=== PATIENT | female | born 1950 | race Caucasian/White ===

== ENCOUNTER 2017-03-12 10:35 | Outpatient (CLI) | payer MEDICARE, OTHER ==
[~2017-03-12] VITALS: Ht 154.9 cm; Wt 65.8 kg
[2017-03-12] MEDS ORDERED: FENT1PAT10 TD (10:50)
[2017-03-12] MEDS ORDERED: VENL150C PO (10:50)
[2017-03-12] MEDS ORDERED: ALPR0.254 PO (10:50)
[2017-03-12] MEDS ORDERED: PANT40TA3 PO (10:50)
[2017-03-12] MEDS ORDERED: CLON1PAT33 TD (10:50)
[2017-03-12] MEDS ORDERED: HYDR-3820 PO (10:50)
[2017-03-12] MEDS ORDERED: CETI10TA17 PO (10:50)
[2017-03-12] MEDS ORDERED: NEBI5TAB8 PO (10:50)
== END 2017-03-12 13:40 ==
LOC: PREOP 10:35
PROVIDERS: ATTEND Family Medicine
DX: Z01.818 Encounter for other preprocedural examination (principal); M20.12 Hallux valgus (acquired), left foot; M20.42 Other hammer toe(s) (acquired), left foot

== ENCOUNTER 2017-03-19 11:41 | Day surgery (SDC) | payer MEDICARE, OTHER ==
[~2017-03-19] VITALS: Ht 154.9 cm; Wt 65.8 kg
[~2017-03-19 11:41] MED LIST: ALPR0.254 PO; CETI10TA17 PO; CLON1PAT33 TD; FENT1PAT10 TD; HYDR-3820 PO; NEBI5TAB8 PO; PANT40TA3 PO; VENL150C PO
[2017-03-19] MEDS ORDERED: LIDOCAINE PF 2% 5 ML (XYLOCAINE) VIAL ONE (12:13)
[2017-03-19] MEDS ORDERED: ONDANSETRON 4 MG/2 ML (SDV) Z0FRAN ONE (12:13)
[2017-03-19] MEDS ORDERED: proPOfol 200 MG/20 ML (DIPRIVAN) VIAL IV ONE (12:13)
[2017-03-19] MEDS ORDERED: DEXAMETHASONE PF 10 MG/ML (DECADRON) VIAL ONE (12:13)
[2017-03-19] MEDS ORDERED: fentaNYL INJECTION 100 MCG/2 ML AMP ONE (12:14)
[2017-03-19] MEDS ORDERED: FAMOTIDINE 20MG/2ML IV (PEPCID) IV ONE (12:15)
[2017-03-19] MEDS ORDERED: ONDANSETRON 4 MG/2 ML (SDV) Z0FRAN IV ONE (12:15)
[2017-03-19] MEDS ORDERED: ceFAZolin 1 GM/NS 50 ML IVPB IV ONE ×2 (12:15)
[2017-03-19] MEDS ORDERED: MIDAZOLAM 2 MG/2 ML (VERSED) VIAL ONE (12:20)
[2017-03-19] MEDS: LACTATED RINGERS 1,000 ML IV PRN ×3 (12:27→16:15)
[2017-03-19] MEDS ORDERED: BUPIVACAINE 0.25% 30 ML (SENSORCAINE) VIAL ONE (12:41)
[2017-03-19 13:26] VITALS: BP 98/63
[2017-03-19] MEDS ORDERED: LACTATED RINGERS 2,000 ML IV ONE (15:50)
[2017-03-19] MEDS ORDERED: SEVOFLURANE (ULTANE) 15 ML INHAL SOLN ONE (16:30)
[2017-03-19] MEDS ORDERED: LACTATED RINGERS 1,000 ML IV ONE (16:31)
--- NOTE | 2017-03-19 16:40 | Progress Note-Pre Operative ---
Pre-Operative Progress Note H&P Reviewed The H&P was reviewed, patient examined and no changes noted. Date H&P Reviewed: Mar 19, 2017 Time H&P Reviewed: 12:40 Pre-Operative Diagnosis: Hallux Valgus, Hammertoes 2,3,4,5 left foot MITCHELL GIVENS DPM Mar 19, 2017 4:40 pm
--- NOTE | 2017-03-19 16:43 | Progress Note-Post Operative ---
Post-Operative Progess Note Surgeon (s)/Pocket Stitcher (s) Surgeon MITCHELL GIVENS DPM Pocket Stitcher: none Pre-Operative Diagnosis Hallux Valgus, Hammertoes 2,3,4,5 left foot Post-Operative Diagnosis Same plus hypertrophic 2nd metatarsal left foot Procedure & Operative Findings Date of Procedure 03/19/17 Procedure Performed/Findings Evaristo-Rahul bunionectomy Reduction of Hammertoes 2, 3, 4, 5 2nd Metatarsal Head resection All left foot Anesthesia Type General Estimated Blood Loss Estimated blood loss (mL): minimal Specimens/Packing Specimens Removed left 2nd metatarsal head Packing: none MITCHELL GIVENS DPM Mar 19, 2017 4:43 pm
[2017-03-19] MEDS ORDERED: morphine INJ 10 MG/ML 1ML (SYR OR VIAL) IVP PRN (16:45)
[2017-03-19] MEDS ORDERED: ONDANSETRON 4 MG/2 ML (SDV) Z0FRAN IVP PRN (16:45)
[2017-03-19] MEDS ORDERED: CEPH500C PO (16:48)
[2017-03-19] MEDS: LACTATED RINGERS 1,000 ML IV SCH ×2 (18:44→23:28)
[2017-03-19] MEDS: HYDROcodone/APAP 5 MG/325 MG (LORTAB) TAB PO PRN ×2 (19:02→23:00)
--- NOTE | 2017-03-19 19:12 | Diagnostic Imaging Report ---
INDICATION: Postoperative left foot COMPARISON STUDIES: None FINDINGS: Two views of the left foot demonstrate pins running from the distal phalanx of the second and third toes into the respective metatarsals. The pin in the second one goes between the soft tissues between the first and second metatarsal. Erosive or postoperative changes are seen in the second metatarsal head. There is a third pin going from the distal phalanx to the base of the proximal phalanx of the fourth toe. Postoperative changes are present in the great toe and these appear to be old. IMPRESSION: Interval pinning of the second, third and fourth digit. Previous postoperative changes seen in the great toe. Dictated by: Dictated on workstation # [id number]
[2017-03-20 00:53] VITALS: BP 104/61
[2017-03-20] MEDS: LACTATED RINGERS 1,000 ML IV SCH ×2 (00:55→07:30)
[2017-03-20] MEDS: oxyCODONE/APAP 5/325MG (PERCOCET 5) TABLET PO PRN ×3 (01:47→10:56)
[2017-03-20] MEDS: HYDROcodone/APAP 5 MG/325 MG (LORTAB) TAB PO PRN ×2 (03:00→06:56)
[2017-03-20 04:05] VITALS: BP 109/72
[2017-03-20 07:52] VITALS: BP 104/61
--- NOTE | 2017-03-20 07:52 | OPERATIVE REPORT ---
DATE OF SERVICE: 03/19/2017 SURGEON: Kat Lynne DPM PREOPERATIVE DIAGNOSES: 1. Hallux valgus metatarsus primus varus, left. 2. Hammer digit syndrome second, third, fourth, and fifth digits, left foot. POSTOPERATIVE DIAGNOSES: 1. Hallux valgus metatarsus primus varus, left. 2. Hammer digit syndrome second, third, fourth, and fifth digits, left foot. 3. Degenerative joint disease and hypertrophic left second metatarsal head. PROCEDURE: 1. Modified Evaristo Rahul bunionectomy, left. 2. Reduction of hammer toe, left third, fourth, and fifth digits. 3. Resection of left second metatarsal head. WOUND CLASS: Clean. ANESTHESIA: General. HEMOSTASIS: Pneumatic thigh tourniquet at 250 mmHg. INDICATION: This 66-year-old female presents complaining of a painful left foot. Conservative therapy is met with unsatisfactory results and the patient is agreeable to surgical intervention after risks and complications were discussed at length. No guarantees were extended to the patient and she is willing to proceed. PROCEDURE: The patient was brought back to the operating table, placed in secure supine position. Appropriate timeout was performed. Pneumatic thigh tourniquet was placed over the left lower extremity over several layers of padding. A general anesthetic was then induced after which the left foot was prepped and draped in a normal sterile manner. The left foot was then elevated and allowed to exsanguinate after which the tourniquet was inflated to 250 mmHg. Attention was then directed to the dorsal aspect of the left first metatarsophalangeal joint where a 6 cm longitudinal curvilinear incision was created. The incision was deepened in the same plane with great care to identify and retract all vital neurovascular structures. The incision was deepened down to the capsular tissue where a longitudinal capsulotomy was performed. This exposed the hypertrophic medial eminence to the first metatarsal head which was resected utilizing the power sagittal saw. Next a blunt dissection was carried out into the first intermetatarsal space where a lateral release was performed to the left first metatarsophalangeal joint. The conjoint tendon of the adductor hallus was released as well as the lateral capsulorrhaphy and the release of the fibular sesamoidal ligament. This allowed the hallux to come back into more rectus alignment. The articular cartilage was found to be intact and because of the osteoporosis noted on x-ray of the first metatarsal head, it was decided that a first metatarsophalangeal joint fusion would not be in the patient's best interest at this time and an attempt at a modified Pari Rahul type procedure was performed. Attention was then directed to the medial aspect of the left first metatarsal where a Chevron type osteotomy was performed with a long dorsal arm. The capital fragment was translocated over laterally and fixated in its corrected position with few guide wires driven from dorsal to plantar. Two 3-0 screws of 12 and 16 mm of length were driven across the guide wires and securing the osteotomy in its corrected position. The guide wires were then withdrawn from the bone, noted appropriate apposition to the osteotomy as well as appropriate fixation. The wound was flushed with copious amounts of normal saline. The remainder of medial eminence to the first metatarsal head was further contoured and smoothed with a power becky. The wound was flushed and attention was then directed to the proximal phalanx where an Rahul type osteotomy was performed with a power sagittal saw. A wedge of bone was then resected with the lateral cortices held intact. Four yard pilot holes were created, the first to the medial aspect of the osteotomy at diaphysis to the proximal phalanx, the second was at the dorsal aspect of the osteotomy. A 28 gauge monofilament wire was then passed through these yard pilot holes securing the osteotomy in a closed position. Excellent bony apposition and fixation was noted at this time. Extensor halluces longus tendon lengthening was also performed at this time. The wound was flushed and closure was performed in layers. Deep closure was performed with 3-0 Vicryl, superficial with 4-0 Vicryl, skin closure with 4-0 Prolene in a horizontal mattress type stitch. Attention was then directed to the dorsal aspect of the second, third, fourth digits where a 4 cm longitudinal linear incision was created from the metatarsal surgical neck to the distal interphalangeal joint area. Each incision was deepened in the same plane with great care to identify and retract all vital neurovascular structures. The extensor tendons were lengthened utilizing a Z slide lengthening procedure overlying the proximal phalanx to the second, third and fourth rays. Dorsal capsulorrhaphy was then performed to the metatarsophalangeal joints and release of the medial and lateral collateral ligaments. This procedure allowed the proximal phalanx to come down into rectus alignment for the fourth and fourth digits. However, on the second digit, the base of the proximal phalanx was lying on top of the surgical neck area of the second metatarsal. A second metatarsal head resection was then performed allowing the digit to come down in more rectus alignment, also reducing the bony prominence where there was significant amount of pain was located to the plantar aspect of the foot. Next, attention was then directed to the proximal phalanx of the second, third and fourth digits where a peg was created with a power sagittal saw and power becky. A power becky was utilized to create a hole in the middle phalanx to the second, third and fourth digits. A 0.054 K-wire was driven down the toe securing the arthrodesis of the proximal phalanx of the digits in rectus alignment. The K-wire was also retrograded proximally into the second metatarsal head area on the second ray. K-wires were cut and a protected ball placed over the end of the wire. The wounds were flushed with copious amounts of normal saline and closure was performed in layers. Deep closure was performed with 3-0 Vicryl, superficial with 4-0 Vicryl, skin closure with 4-0 Prolene in a horizontal mattress type stitch. Attention was then directed to the contracture of the left fifth toe where utilizing an 11 blade the extensor tendon overlying the metatarsophalangeal joint was released as well as a stab incision to the plantar aspect of the flexor tendon underlying the proximal interphalangeal joint. Some reduction of the rigid hammertoe was appreciated at this time. The wounds were flushed with copious amounts of normal saline. Postoperative injection consisted of 20 mL of 0.5% Marcaine injected in local infusion to the surgical site. Postoperative dressing consisted of Betadine-soaked Adaptic, sterile 4 x 4s, sterile Kerlix, all secured with a Coban wrap to the left foot. Prior to application of dressing, the tourniquet was released and noted appropriate capillary refill time to all digits of the left foot. Postoperative instructions were dispensed to the patient. She was transported from the operating room to the recovery area with vital signs stable and vascular status intact to all digits of the left foot. The patient is going to be held for 23 hours observation and for pain management. She is to continue with her Vicodin as well as she was given a prescription for Keflex for the next week. We will see the patient back in 1 week period of time in my office. Job ID: [id number] DocumentID: [id number] Dictated Date: 03/19/2017 17:03:24 Manufacturing Engineer Machining Date: 03/20/2017 06:40:52 Dictated By: NALINI CLINTON
[2017-03-20] MEDS ORDERED: HYDR-3820 PO (09:03)
--- NOTE | 2017-03-20 10:34 | Physical Therapy Ortho Eval ---
PT Orthopedic Evaluation Type of Surgery hallux valgus and Hammertoes 2,3,4,5 left foot Prior Level of Function Current Living Status: Other Family Locomotion (Upon Admit): Front Wheeled Walker, Manual Wheelchair Established Durable Medical Eq: Front Wheeled Walker, Manual Wheelchair Subjective Subjective Patient agrees to PT. Entry Into Home: Level Entry Objective Objective NWB left foot with patient unable to comply due to weakness Strength Strength: Gen Weak,No Focal Deficit Transfer Transfers (B, C, W/C) (FIM): 5 patient performed SPT with use of FWW bed to chair Gait Gait Assistive Device: FWW Weight Bearing Restriction: Non Weight Bearing Location Restriction: LT FOOT Summary/Comments unable to comply with NWB with surgical shoe in place Treatment Rendered Treatment: Reviewed Precautions Assessment/Goals Goal Time Frame: 1 Visit Safe Ambulation: No patient will propel w/c at home as PLOF Plan Treatment Plan: Discharge PT/Family Agrees to Plan: Yes Time Time In: 956 Time Out: 1016 Total Billed Treatment Time: 20 Billed Treatment Time 1 visit EVModC 20 min Yes PT/OT Therapy GCodes Therapy Functional Limitation: Physical Therapy Test(s)/Tool used to determine: Level of Assistance Scale Functional Limitation-Current Charge Code: MOBCUR Modifier: CJ Functional Limitation-Goal Charge Code: MOBGOAL Modifier: CJ Functional Limitation-D/C Charge Codes: MOBDC Modifier: RADHA ABRAHAM PT Mar 20, 2017 10:34
== END 2017-03-20 11:11 | disposition home or self-care (01) ==
LOC: SDC 11:41 → 4TH 17:40 → SDC 03-20 11:11
PROVIDERS: ATTEND Podiatrist Foot & Ankle Surgery
DX: M20.12 Hallux valgus (acquired), left foot (principal); M20.42 Other hammer toe(s) (acquired), left foot; M19.072 Primary osteoarthritis, left ankle and foot; M89.372 Hypertrophy of bone, left ankle and foot; I10 Essential (primary) hypertension; D64.9 Anemia, unspecified; E78.2 Mixed hyperlipidemia; F32.9 Major depressive disorder, single episode, unspecified; M06.9 Rheumatoid arthritis, unspecified; Z87.891 Personal history of nicotine dependence; Z79.899 Other long term (current) drug therapy
CPT/HCPCS: 73620; 87081

== ENCOUNTER → 2017-10-15 | Outpatient (CLI) | payer MEDICARE, OTHER ==
[~2017-10-15] MED LIST changes: +CEPH500C PO; +CLON0.1T PO; +ETAN50PE SQ; +PRD10T PO
--- NOTE | 2017-10-15 14:30 | Diagnostic Imaging Report ---
EXAMINATION: Renal Doppler vascular ultrasound. INDICATION: Hypertension. FINDINGS: The right kidney is 10.1 cm and the left kidney is 10.6 cm in length. There is no hydronephrosis. Simple-appearing cysts are seen in both kidneys up to 2.3 cm on the right side and up to 3.8 cm on the left side exophytic from the lower pole. The right renal artery is obscured by bowel gas. The left renal artery proximally is obscured. Mid and distal segment peak systolic velocities are 71 and 86 cm/s. The resistive index in the right kidney is 0.58-0.63 and resistive index readings in the left kidney are 0.55 to 0.64. IMPRESSION: The proximal left renal artery and the entire right renal artery length are obscured. The mid and distal left renal artery velocities are within normal limits. Dictated by: Dictated on workstation # [id number]
== END ==
LOC: RAD 08:45
PROVIDERS: ATTEND Internal Medicine Cardiovascular Disease
DX: I10 Essential (primary) hypertension (principal); E78.2 Mixed hyperlipidemia; D64.9 Anemia, unspecified
CPT/HCPCS: 93975